=== PATIENT | male | born 1985 | race Two or more races ===

== ENCOUNTER 2019-06-16 21:07 | Emergency (ER) | payer BC, OTHER ==
--- NOTE | 2019-06-16 21:37 | PDOC ---
Rapid Medical Evaluation Time Seen by Provider: 06/16/19 21:34 Medical Evaluation: 06/16/19 21:34 I have performed a brief in-person evaluation of this patient. The patient presents with a chief complaint of: pain to "R kidney area", three days ago had "red in urine" Pertinent physical exam findings: mild R CVAT I have ordered the following: urine, spiral CT The patient will proceed to the ED for further evaluation. Discharge Disposition - Diagnosis Kidney pain - Referrals - Patient Instructions - Post Discharge Activity
[2019-06-16 21:39] VITALS: BP 128/65; PULSE 52; TEMP 98.5; BMI 29.7
[2019-06-16 22:25] LABS: EPI CELLS 1.4 /HPF (0-5/HPF); HYALINE CASTS 7 /lpf (0-8); PH,URINE 5.5 (5.0-8.0); URINE APPEARANCE CLOUDY; URINE BACTERIA 1.7 /hpf (NEGATIVE); URINE BILIRUBIN NEGATIVE (NEGATIVE); URINE COLOR YELLOW; URINE GLUCOSE (UA) NEGATIVE (NEGATIVE); URINE KETONE TRACE (NEGATIVE); URINE LEUK ESTERASE NEGATIVE (NEGATIVE); URINE NITRITE NEGATIVE (NEGATIVE); URINE PROTEIN NEGATIVE (NEGATIVE); URINE RBC 14 /hpf (0-4); URINE WBC 2 /hpf (0-5)
[2019-06-16] MEDS ORDERED: SODIUM CHLORIDE 1,000 ML IV STA (22:31)
--- NOTE | 2019-06-16 22:54 | PDOC ---
History of Present Illness - General Chief Complaint: Hematuria Stated Complaint: LWR BACK PAIN Time Seen by Provider: 06/16/19 21:34 - History of Present Illness Initial Comments: 06/17/19 00:11 HPI: 33 y/o M with hx of kidney stones 8 years ago presenting with 3 days of intermittent right sided flank pain worsening over the past day. He states he woke up in the morning with the pain and it worsened to radiate to the mid and lower right flank. Pain is 5/10 and worse with motion. He now also feels the pain in the left flank. He tried motrin 400mg yesterday and diclofenac the day before with improvement of pain. He also reports 2 episodes of blood in the urine earlier in the week. He denies any fever, chills, chest pain, SOB, LH, MENDOZA , abd pain, n/v, pain on urination. PMHx: as noted above ROS: as noted SHx: Denies tobacco use; social alcohol use; no rec drugs Allergies: NKDA ROS: GENERAL/CONSTITUTIONAL: No fever or chills. No weakness. HEAD, EYES, EARS, NOSE AND THROAT: No change in vision. No ear pain or discharge. No sore throat. CARDIOVASCULAR: No chest pain or shortness of breath RESPIRATORY: No cough, wheezing, or hemoptysis. GASTROINTESTINAL: No nausea, vomiting, diarrhea or constipation. GENITOURINARY: +hematuria MUSCULOSKELETAL: No joint or muscle swelling or pain. No neck or back pain. SKIN: No rash NEUROLOGIC: No headache, vertigo, loss of consciousness, or change in strength/ sensation. ENDOCRINE: No increased thirst. No abnormal weight change HEMATOLOGIC/LYMPHATIC: No anemia, easy bleeding, or history of blood clots. ALLERGIC/IMMUNOLOGIC: No hives or skin allergy. PE: GENERAL: Awake, alert, and fully oriented, no acute distress HEAD: No signs of trauma, normocephalic, atraumatic EYES: EOMI, sclera anicteric, conjunctiva clear ENT: Auricles normal inspection, hearing grossly normal, nares patent, oropharynx clear without exudates. Moist mucosa NECK: Normal ROM, no lymphadenopathy LUNGS: No increased work of breathing, symmetrical chest rise, clear to auscultation bilaterally, no wheezes, crackles or rhonchi HEART: Regular rate and rhythm, normal S1 and S2, no murmurs, peripheral pulses 2+ and equal bilaterally. ABDOMEN: Soft, nondistended, referred flank pain with palpation of RUQ/RLQ, right sided CVAT, normoactive bowel sounds. No guarding, no rebound. No masses EXTREMITIES: Normal inspection, Normal range of motion, no edema. No clubbing or cyanosis. NEUROLOGICAL: Cranial nerves II through XII grossly intact. Normal speech, normal gait, no focal sensorimotor deficits SKIN: Warm, Dry, normal turgor, no rashes or lesions noted Past History - Past Medical History Allergies/Adverse Reactions: Allergies Allergy/AdvReac Type Severity Reaction Status Date / Time No Known Allergies Allergy Verified 06/16/19 21:39 Home Medications: Ambulatory Orders Ketorolac Tromethamine [Toradol] 10 mg PO TID #21 tablet 06/17/19 COPD: No - Suicide/Smoking/Psychosocial Hx Smoking History: Never smoked Have you smoked in the past 12 months: No Information on smoking cessation initiated: No Hx Alcohol Use: No Drug/Substance Use Hx: No *Physical Exam - Vital Signs Last Vital Signs Temp Pulse Resp BP Pulse Ox 98.5 F 52 L 16 128/65 100 06/16/19 21:35 06/16/19 21:35 06/16/19 21:35 06/16/19 21:35 06/16/19 21:35 ED Treatment Course - ADDITIONAL ORDERS Additional order review: Laboratory Results 06/16/19 21:47 Urine Color Yellow Urine Appearance Cloudy Urine pH 5.5 Ur Specific Lipan 1.029 Urine Protein Negative Urine Glucose (UA) Negative Urine Ketones Trace H Urine Blood 2+ H Urine Nitrite Negative Urine Bilirubin Negative Urine Urobilinogen 1.0 Ur Leukocyte Esterase Negative Urine WBC (Auto) 2 Urine RBC (Auto) 14 Urine Casts (Auto) 7 U Epithel Cells (Auto) 1.4 Urine Bacteria (Auto) 1.7 Medical Decision Making - Medical Decision Making 06/17/19 00:25 33 y/o M with hx of kidney stones 8 years ago presenting with 3 days of intermittent right sided flank pain worsening over the past day. VSS. PE with referred flank pain on right abdominal palpation and r sided CVAT. -UA -spiral CT 06/17/19 00:49 CT with right sided staghorn calculus involving the mid and lower vishnu of the kidney without obstruction or hydro. nonobstructing left kidney intrarenal calculi Discussed with patient results and return pcxn. Patient understands all information and is comfortable with DC home with PCP and urology followup *DC/Admit/Observation/Transfer Diagnosis at time of Disposition: Kidney pain, Staghorn calculus - Discharge Dispostion Disposition: HOME Condition at time of disposition: Improved Decision to Admit order: No - Prescriptions Prescriptions: Ketorolac Tromethamine [Toradol] 10 mg PO TID #21 tablet - Referrals Referrals: Milton Castro MD [Primary Care Provider] - Felipe Zhong MD [Staff Physician] - - Patient Instructions Printed Discharge Instructions: DI for Kidney Stones Additional Instructions: Additional Instructions: Please return to the emergency department with any new or worsening symptoms or concerns including worsening pain, bloody urine, fever, fainting, nonstop vomiting. Please follow up with your primary care physician this week Please followup with the Urology as soon as possible who's information was provided in the packet for further evaluation and management You make take keterolac 10mg every 8hours as needed for pain control. you make take motrin 600mg every 8hours and tylenol every 8 hours if keterolac runs out - Post Discharge Activity
[2019-06-16 23:35] LABS: URINE CRYSTALS URIC ACID /hpf
[2019-06-17] MEDS ORDERED: KETOROLAC TROMETHAMINE 30 MG/1 ML VIAL IVPUSH ONE (00:01)
[2019-06-17] MEDS ORDERED: KETOROLAC TROMETHAMINE 30 MG/1 ML VIAL ONE (00:27)
--- NOTE | 2019-06-17 00:51 | PDOC ---
Attending Attestation - Resident Resident Name: Jose FranciscoArinmicheal - ED Attending Attestation I have performed the following: I have examined & evaluated the patient, The case was reviewed & discussed with the resident, I agree w/resident's findings & plan, Exceptions are as noted - HPI HPI: 06/17/19 00:51 33 yo male p/w rt flank pain and hematuria - Physicial Exam PE: 06/17/19 00:51 wnwd 33 yo male w flank head ncat lungs cta b/l cvs [id number] abd nontender skin warm and dry rt flank pain neuro axox3,ambulatory 06/17/19 03:06 - Medical Decision Making 06/17/19 03:07 ct scan reveals staghorn renal calculi but no obstructive uropathy pt referred to urology
== END 2019-06-17 01:10 | disposition home or self-care (01) ==
LOC: JER 21:07
PROC: 3E0337Z Introduction of Electrolytic and Water Balance Substance into Peripheral Vein, Percutaneous Approach (ICD-10-PCS; principal; 2019-06-16)
PROC: 3E0333Z Introduction of Anti-inflammatory into Peripheral Vein, Percutaneous Approach (ICD-10-PCS; 2019-06-16)
DX: N20.0 Calculus of kidney (principal); Z87.442 Personal history of urinary calculi
CPT/HCPCS: 74176-TC; 81003; 87086; 99282-25; J7030